=== PATIENT | female | born 1965 | race Two or more races ===

== ENCOUNTER 2024-08-08 16:45 | Inpatient (IN) | payer MEDICAID, SELFPAY ==
[2024-08-08 17:08] VITALS: BP 123/84; PULSE 85; RESP 18; TEMP 36.6; O2SAT 95
--- NOTE | 2024-08-08 17:17 | XR_ITS ---
Examination: CT brain head without contrast. 2-D sagittal coronal reconstructions Date and time of exam:August 08, 2024 at 1905 hrs. Indications: Right-sided head pain today expressing of achalasia CTDI: vol (mGy):48.2 DLP: (mGycm):928 Technique: Multiple CT axial sections of the brain have been obtained, 5 mm slice thickness. Contrast has not been administered. 2-D sagittal, coronal reconstructions have been obtained Low dose protocols were performed. One or more of the following dose reduction techniques were used; automated exposure control, adjustment of the mA and/or KV according to patient size, use of iterative reconstruction technique. Findings: No significant ventricular enlargement. Intra-axial or extra-axial hemorrhage density is not seen. No mass effect or midline shift Basal cisterns are not remarkable. Fourth ventricle is midline. Cranial vault intact. Impression: Negative for acute hemorrhage, mass effect or midline shift Brain MRI follow-up would best assess for demyelinating disease, acute ischemic change
--- NOTE | 2024-08-08 17:17 | XR_ITS ---
Examination: CTA carotids with intravenous contrast CTA brain, head with intravenous contrast. 2-D sagittal, coronal reconstructions. 3-D reconstructions. Exam date and time: August 08, 2024 1906 hours Indications: Right-sided neck pain blurred speech beginning 2 weeks ago CTDI: vol (mGy) 31.9 DLP: (mGycm) 138 Technique: Multiple CTA axial brain, head carotid images post intravenous contrast injection 100 cc, [id number]. 2-D sagittal, coronal reconstructions. 3-D reconstructions, 3-D post processing including vascular maximum intensity projection images. Low dose protocols were performed. One or more of the following dose reduction techniques were used; automated exposure control, adjustment of the mA and/or KV according to patient size, use of iterative reconstruction technique. Findings: No significant common carotid carotid bifurcation or internal carotid artery stenoses Codominant vertebral arteries with no critical stenoses No cerebral large vessel arterial occlusions or thrombus Impression: No significant neck arterial stenoses No cerebral large vessel arterial occlusions or thrombus
--- NOTE | 2024-08-08 17:18 | EKG_ITS ---
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
--- NOTE | 2024-08-08 17:20 | PD.EDADULT ---
ED General RME/HPI General Chief complaint: General Adult/Misc Complain Stated complaint: PT COULDN'T TALK 2 WKS AGO; SENT BY MD TODAY Time Seen by Provider: 08/08/24 17:03 Arrival date/time: 08/08/24 16:45 CC: Expressive aphasia HPI 2 weeks ago the patient had 2 episodes each lasting 2 to 3 minutes where the patient was completely unable to speak. The patient knew what she wanted to say, but was unable to say it. These all spontaneously resolved in the ensuing 2 weeks the patient has had intermittent episodes where she has a tough time trying to express herself. This is all new per her daughter who watches her closely. The daughter also states the patient has had an increased shuffled gait in the left leg onset approximately 1 week ago. The patient is a diabetic with hypertension hyperlipidemia currently she states she still has limited amount of expressive aphasia but is able to answer all the questions appropriately via selenium plant operator. Related Data Home Medications ?Medication ?Instructions ?Recorded ?Confirmed METFORMIN HCL (METFORMIN HCL ER) 1,000 mg PO BID Diabetes ##0 08/06/13 10/10/17 glipizide 5 mg tablet 5 mg PO BID 10/10/17 10/10/17 hydrocodone 7.5 mg-acetaminophen 1 tab PO Q6H PRN Pain 10/10/17 10/10/17 325 mg tablet ranitidine HCl 150 mg tablet 150 mg PO BID 10/10/17 10/10/17 Previous Rx's ?Medication ?Instructions ?Recorded cephalexin 500 mg capsule (Keflex) 500 mg PO TID #15 caps 10/10/17 ondansetron HCl 4 mg tablet 4 mg PO Q6H PRN nausea and 10/10/17 (Zofran) vomiting #7 tabs promethazine 25 mg tablet 25 mg PO TID PRN nausea and 02/09/21 vomiting #20 tabs Allergies Allergy/AdvReac Type Severity Reaction Status Date / Time tramadol Allergy Mild Itching Verified 08/08/24 16:50 Review of Systems Review of Systems Narrative Review of Systems: GEN: No fever, no chills, no weight loss EYES: No discharge, no visual changes, no pain HEENT: No ear pain, no congestion, no sore throat PULM: No shortness of breath, no cough, no congestion CV: No chest pain, no dyspnea on exertion, no palpitations GI: No nausea, no vomiting, no diarrhea, no pain, no constipation : No frequency, no urgency, no dysuria MUSC/SKEL: No joint pain, no back pain SKIN: No rash PSYCH: No hallucinations, no depression HEME/LYMPH: No easy bleeding or bruising tendencies NEURO: No weakness, no headache,+ difficulty speaking Past Medical History Past Medical History CARDIAC: Negative Cardiac Disorders or Congestive Heart Failure RESPIRATORY: Negative Chronic Obstructive Pulmonary Disease (COPD) or Asthma GASTROINTESTINAL: Positive Gastroesophageal Reflux Disease GENITOURINARY: Negative Renal Disease ENDOCRINE: Positive Diabetes Mellitus Type 2; Negative Diabetes Mellitus Type 1 HEMATOLOGIC: Negative Sickle Cell Disease Social History SMOKING STATUS: Never smoker SUBSTANCE USE: does not use ED Exam Narrative Physical exam: [General: Not in any acute distress Head normocephalic HEENT: Eyes pupils are PERRLA EOMs are intact mouth pink moist membranes uvula is midline swallow symmetrical. Face note, no facial droop smile symmetrical. All other subsystems of HEENT are within acceptable limits Neck is supple nontender Chest equal chest rise nontender to palpation Respiratory: Clear to auscultation no wheezes crackles or rubs CV: Rate rhythm is regular no murmurs rubs or clicks Abdomen is soft nontender no masses positive bowel sounds all 4 quadrants Back: No CVA tenderness no spinous process tenderness from cervical spine thoracic and lumbar spine Skin: Intact no petechiae rash induration ulceration or crepitus Extremities: Moving all extremity against resistance cap refill less than 2 seconds neurosensory intact Neuro: Awake alert oriented x3 Glascow coma 15 no focal deficits] Course Course Course Narrative: Patient's case discussed with Dr. Jorgensen who agrees to consult on the patient once the patient admitted for MRI in the morning. Orders Category Date Time Status CT Screening NOW Care 08/08/24 17:18 Active EKG (ED ONLY) *Do not use* NOW Care 08/08/24 17:18 Completed Consult to Neurology / Tele-Neurology Stat Cons 08/08/24 20:[address] angio carotid w head w Stat Exams 08/08/24 17:[address] head/brain wo con Stat Exams 08/08/24 17:17 Completed EKG (ED Only) Stat Exams 08/08/24 17:18 Draft B-Type Natriuretic Peptide Stat Lab 08/08/24 17:30 Completed CBC Stat Lab 08/08/24 17:30 Completed Comprehensive Metabolic Panel Stat Lab 08/08/24 17:30 Completed Drug Screen,Urine Stat Lab 08/08/24 18:17 Completed LDH (Lactate Dehydrogenase) Stat Lab 08/08/24 17:30 Completed Magnesium Stat Lab 08/08/24 17:30 Completed Partial Thromboplastin Time Stat Lab 08/08/24 17:30 Completed Prothrombin Time with INR Stat Lab 08/08/24 17:30 Completed Troponin I Stat Lab 08/08/24 17:30 Completed Urinalysis Stat Lab 08/08/24 18:17 Completed Vital Signs Vital signs: Vital Signs Temperature 97.9 F 08/08/24 17:08 Pulse Rate 85 08/08/24 17:08 Respiratory Rate 18 08/08/24 17:08 Blood Pressure 123/84 08/08/24 17:08 Pulse Oximetry (%) 95 08/08/24 17:08 Oxygen Delivery Method Room Air 08/08/24 17:08 [facility] Patient data External records reviewed:: [facility] previous records Clinical information provided by:: patient Social determinants that could affect healthcare access:: none Patient has the following chronic illnesses:: Diabetes hypertension hyperlipidemia How is presenting disease/condition affected by chronic disease/condition?: uneffected by Evaluation data The following diagnostics were reviewed and interpreted by me:: lab results, radiology exam(s) and EKG tracing(s) Lab and/or radiology exams considered but not ordered:: EKG performed at 1721 shows a ventricular rate of 84 NE interval 163 QRS of 102 QTc of 345 the sinus rhythm Interpretation Summary: CBC shows no acute leukocytosis anemia thrombocytopenia Coags within acceptable limits CMP shows no significant electrolyte imbalances other than a glucose of 223 no transaminitis or T. bili elevation Troponin is negative BNP is negative Urine is positive for leukocyte esterase 23 WBCs 1+ bacteria U tox is positive for opiate CT head and CTA neck both are negative for any acute finding requires emergent or immediate intervention as interpreted by me and read by radiology. Medications Medications considered but not ordered:: None Medication administrations:: None Consultations Consultation(s) initiated? (list below): Yes Consultation #1 (Physician, Specialty, Details): Jameel Time: 20:36 Diagnosis Differential Diagnosis ED Complaint MDM: CVA TIA intracranial hemorrhage Most likely diagnosis given after review of the tests above:: CVA Admission Indicated Admission indicated?: indicated Explain why admission is indicated or not indicated:: Requires further medical management Admission Request Was there a request for admission?: No Disposition Plan Disposition Plan: Admit Medical Decision Making Differential Diagnosis Differential Diagnosis: CVA TIA intracranial hemorrhage Lab Data 08/08/24 17:30 08/08/24 17:30 Labs: Lab Results 08/08/24 08/08/24 Range/Units 17:30 18:17 WBC 7.5 (3.6-11.0) Thou/mm3 RBC 4.15 (4.00-5.20) Miln/mm3 Hgb 12.5 (12.0-16.0) g/dL Hct 36.8 (36.0-46.0) % MCV 89 (80-100) fL MCH 30.1 (25.0-35.0) pg MCHC 34.0 (31.0-37.0) g/dl RDW Std Deviation 41.4 (36.4-46.3) fL Plt Count 291 (140-440) Thou/mm3 Neut % (Auto) 52 (37-80) % Lymph % (Auto) 38 (10-50) % Lyman % (Auto) 6 (0-12) % Eos % (Auto) 3 (0-10) % Baso % (Auto) 1 (0-2.5) % Neut # (Auto) 3.9 (1.8-7.7) Thou/mm3 Lymph # (Auto) 2.8 (1.0-4.8) Thou/mm3 Lyman # (Auto) 0.4 (0.0-0.8) Thou/mm3 Eos # (Auto) 0.2 (0.0-0.5) Thou/mm3 Baso # (Auto) 0.1 (0.0-0.2) Thou/mm3 Immature Gran # (Auto) 0.02 H (0.00-0.00) Thou/mm3 Absolute Nucleated RBC 0.00 (0.00-0.00) Thou/mm3 Immature Gran % 0 (0-0) % Nucleated RBC % 0 (0) /100 WBC PT 10.9 (9.0-12.2) Seconds INR 1.0 (0.9-1.3) APTT 26.0 (22.0-36.0) Seconds Sodium 140 (136-145) mMol/L Potassium 3.4 (3.4-5.1) mMol/L Chloride 104 (98-107) mMol/L Carbon Dioxide 28.3 (20.0-31.0) mMol/L Anion Gap 8 (7-16) BUN 16 (9-23) mg/dL Creatinine 1.1 (0.6-1.3) mg/dL Estim Creat Clear Calc Not Performed. eGFR 58 L (60 - ) See Note BUN/Creatinine Ratio 15 (12-20) Ratio Glucose 223 H (74-106) mg/dL Calculated Osmolality 287 (275-295) Calcium 9.7 (8.3-10.6) mg/dL Corrected Calcium 9.7 (8.5-10.1) mg/dL Magnesium 1.7 (1.6-2.6) mg/dL Total Bilirubin 0.6 (0.3-1.2) mg/dL AST 10 (0-34) U/L ALT 14 (10-49) U/L Alkaline Phosphatase 90 (46-116) U/L Lactate Dehydrogenase 130 (120-246) U/L Troponin I < 0.002 (0.0-0.045) ng/mL B-Natriuretic Peptide 38 (0-100) pg/mL Total Protein 6.7 (5.7-8.2) gm/dL Albumin 4.1 (3.5-5.0) gm/dL Globulin 2.6 (2.3-3.5) gm/dL Albumin/Globulin Ratio 1.6 (1.2-2.2) Ur Collection Type Clean Catch Urine Color Yellow (Lt Yel-Yel) Urine Clarity Clear (Clear/Hazy) Urine pH 6.5 (5.0-7.0) Ur Specific [place] 1.021 (1.001-1.035) Urine Protein Negative (Neg - Trace) Urine Glucose (UA) Trace (Negative) Urine Ketones Negative (Negative) Urine Blood Negative (Negative) Urine Nitrite Negative (Negative) Urine Bilirubin Negative (Negative) Urine Urobilinogen (Auto) 2.0 (0.0-1.0) mg/dL Ur Leukocyte Esterase Positive (Negative) Urine RBC 7 H (0-3) /hpf Urine WBC 23 H (0-5) /hpf Ur Squamous Epith Cells 1 (0-5) /hpf Urine Bacteria 1+ A (None) Urine Opiates Screen Positive A (Negative) Urine Fentanyl Screen Negative (Negative) Ur Barbiturates Screen Negative (Negative) U Amphetamin/Meth Scrn Negative (Negative) U Benzodiazepines Scrn Negative (Negative) U Cocaine Metab Screen Negative (Negative) U Marijuana (THC) Screen Negative (Negative) Discharge Plan Plan Patient Disposition: Other Care w/in Hosp (SDC/SHAHEED) Patient condition on transfer: Stable Prescriptions/Referrals Prescriptions/Med Rec: No Action METFORMIN HCL (METFORMIN HCL ER) 500 MG TAB.ER.24 1,000 mg PO BID Qty: 0 hydrocodone-acetaminophen 7.5-325 mg Tablet 1 tab PO Q6H PRN (Reason: Pain) ranitidine HCl 150 mg Tablet 150 mg PO BID glipizide 5 mg Tablet 5 mg PO BID ondansetron HCl [Zofran] 4 mg tablet 4 mg PO Q6H PRN (Reason: nausea and vomiting) Qty: 7 0RF cephalexin [Keflex] 500 mg capsule 500 mg PO TID Qty: 15 0RF Rx Instructions: space evenly during waking hours promethazine 25 mg tablet 25 mg PO TID PRN (Reason: nausea and vomiting) Qty: 20 0RF Referrals: No Primary/Family,Physician [Primary Care Provider] - In 1 week Problem List Clinical Impression: Expressive aphasia syndrome Patient/Caregiver Discharge Instructions Print Language: Armenian Stand Alone Forms: Mery Award Info., Patient Portal Info Letter PA/STAFF DEVELOPMENT NURSE Supervising Physician PA/STAFF DEVELOPMENT NURSE Supervising Physician: Mina Otto ENP
[2024-08-08 17:37] LABS: Basophils # (Auto) 0.1 Thou/mm3 (0.0-0.2); Basophils % (Auto) 1 % (0-2.5); Eosinophils # (Auto) 0.2 Thou/mm3 (0.0-0.5); Eosinophils % (Auto) 3 % (0-10); Hematocrit 36.8 % (36.0-46.0); Hemoglobin 12.5 g/dL (12.0-16.0); Immature Granulocytes % (Auto) 0 % (0-0); Immature Granulocytes Auto 0.02 Thou/mm3 (0.00-0.00); Lymphocytes # (Auto) 2.8 Thou/mm3 (1.0-4.8); Lymphocytes % (Auto) 38 % (10-50); Mean Corpuscular Hemoglobin 30.1 pg (25.0-35.0); Mean Corpuscular Volume 89 fL (80-100); Monocytes # (Auto) 0.4 Thou/mm3 (0.0-0.8); Monocytes % (Auto) 6 % (0-12); Neutrophils # (Auto) 3.9 Thou/mm3 (1.8-7.7); Neutrophils % (Auto) 52 % (37-80); Nucleated Red Blood Cell % 0 /100 WBC (0); Platelet Count 291 Thou/mm3 (140-440); RDW Standard Deviation 41.4 fL (36.4-46.3); Red Blood Count 4.15 Miln/mm3 (4.00-5.20); White Blood Count 7.5 Thou/mm3 (3.6-11.0)
[2024-08-08 17:56] LABS: Prothrombin Time 10.9 Seconds (9.0-12.2)
[2024-08-08 17:58] LABS: B-Type Natriuretic Peptide 38 pg/mL (0-100)
[2024-08-08 17:59] LABS: Alanine Aminotransferase 14 U/L (10-49); Albumin, Serum 4.1 gm/dL (3.5-5.0); Albumin/Globulin Ratio 1.6 (1.2-2.2); Alkaline Phosphatase 90 U/L (46-116); Anion Gap 8 (7-16); Aspartate Amino Transferase 10 U/L (0-34); BUN/Creatinine Ratio 15 Ratio (12-20); Bilirubin,Total 0.6 mg/dL (0.3-1.2); Blood Urea Nitrogen 16 mg/dL (9-23); Calcium 9.7 mg/dL (8.3-10.6); Calcium (Corrected) 9.7 mg/dL (8.5-10.1); Carbon Dioxide 28.3 mMol/L (20.0-31.0); Chloride 104 mMol/L (98-107); Creatinine (Component) 1.1 mg/dL (0.6-1.3); Globulin 2.6 gm/dL (2.3-3.5); Glucose 223 mg/dL (74-106); LDH (Lactate Dehydrogenase) 130 U/L (120-246); Magnesium 1.7 mg/dL (1.6-2.6); Osmolality,Calculated 287 (275-295); Potassium 3.4 mMol/L (3.4-5.1); Sodium 140 mMol/L (136-145); Total Protein 6.7 gm/dL (5.7-8.2); Troponin I < 0.002 ng/mL (0.0-0.045); eGFR 58 See Note
[2024-08-08 18:09] VITALS: BMI 28.5
[2024-08-08 18:28] LABS: Collection Type, Urine Clean Catch
[2024-08-08 18:44] LABS: Bacteria,Urine 1+; Bilirubin,Urine Negative (Negative); Blood,Urine Negative (Negative); Clarity,Urine Clear (Clear/Hazy); Color,Urine Yellow (Lt Yel-Yel); Glucose, Urine Trace (Negative); Ketones,Urine Negative (Negative); Leukocyte Esterase,Urine Positive (Negative); Nitrite,Urine Negative (Negative); PH,Urine 6.5 (5.0-7.0); Protein,Urine Negative (Neg - Trace); RBC,Urine 7 /hpf (0-3); Specific Gravity,Urine 1.021 (1.001-1.035); Squamous Epithelial Cell,Urine 1 /hpf (0-5); WBC,Urine 23 /hpf (0-5)
[2024-08-08 18:49] LABS: Amphetamine/Methamp Scrn,U Negative (Negative); Barbiturate Screen,Urine Negative (Negative); Benzodiazepines Screen,Urine Negative (Negative); Benzoylecgonine Screen, Ur Negative (Negative); Fentanyl Screen,Urine Negative (Negative); Opiate Screen,Urine Positive (Negative); THC Screen,Urine Negative (Negative)
[2024-08-08 18:51] VITALS: BP 105/71; PULSE 71; RESP 18; TEMP 36.6; O2SAT 95
[2024-08-08 20:00] VITALS: BP 101/67; PULSE 69; RESP 16; TEMP 36.6; O2SAT 98
[2024-08-08 22:00] VITALS: BP 95/63; PULSE 66; RESP 16; TEMP 36.6; O2SAT 96
[2024-08-08 23:24] VITALS: BMI 31.9
--- NOTE | 2024-08-08 23:37 | ESHP_ITS ---
Documentation for date of: 08/08/24 HPI History of Present Illness History of present illness: Jim is a 58 y/o female with past medical history of hypertension, hyperlipidemia, bdd-gycnjcq-npkhaloyu type 2 diabetes mellitus comes in for an evaluation of expressive aphasia, slurred speech, left lower extremity weakness, left-sided eye droop, and trouble finding words with speech, onset 2 weeks ago. Patient's daughter is present at bedside to help conduct HPI. Patient's daughter reports that she noticed that her mother started to have the symptoms a couple of days ago on Thursday. She does note that the patient has some gait issue especially with her left lower extremity. She also notes that patient has been making sense with her sentences however she has trouble finding words, slurred speech at times, and has trouble remembering some things more often lately. Patient denies having any associated headache, chest pain, shortness of breath nausea or vomiting. She does say that the symptoms are new. She also notes that about 4 years ago she was admitted for nausea and vomiting and had some altered mental status and had imaging worked done which included MRI, however all of that was negative. 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 She does endorse having more trouble remembering things lately. She denies any recent travel or sicknesses. She was post to get an outpatient MRI, however once patient's daughter knew that patient started to experience the symptoms for 2 weeks, she recommended patient to go to the ER directly and get admitted. She has no other complaints at this time. ED course: She arrived to the ED with a temperature of 98, heart rate of 85, respiratory of 18, blood pressure of 123/84, saturating 95% room air. She was worked up and was found to have a sodium of 140, potassium 3.4, bicarb of 20, BUN/creatinine of 16 and 1.1 respectively, glucose of 223, coag panel negative, magnesium 1.7, troponin negative x 1, AST ALT 10 and 14 respectively. Patient had urinalysis which showed 23 white cells, leukocyte esterase and +1 bacteria. EKG showed possible left atrial enlargement and normal sinus rhythm. U tox was positive for opioids (she takes opioids at home). Head CT negative, head neck CTA negative. Medicine was consulted and patient was admitted to floors Past medical history: As above Surgical history: Hysterectomy, hernia repair, oophorectomy (1 ovary for benign tumor), cholecystectomy, foot surgery for bunions Allergies: Tramadol gives hives Medicines: Lisinopril, pravastatin, metformin, glipizide, Prilosec, Ambien Family history: Breast cancer runs in her family, sister got some abdominal cancer, diabetes mellitus, stroke with her brother in age of 60s. Social history: Born in [place], came to [place] about 30 years ago. Worked in the [employer] and retired about 4 years ago when she had to take care of her parents in which they both passed. # Has never been a big drinker, no smoking or drug history. She cooks all her meals, walks without a walker. Lives with her daughter and her . Review of Systems Review of Systems Narrative Review of Systems: Constitutional: No fever, chills, fatigue, weakness, weight loss HEENT: No eye pain, vision loss, ear pain, hearing loss, dysphagia, Cardiovascular: No chest pain, palpitations, edema, pain with walking Respiratory: No cough, shortness of breath, wheezing GI: No NVD, abdominal pain, constipation, blood in stool, loss of appetite, heartburn Extremities: No presence of pitting edema MSK: No back pain, joint pain, joint swelling Neuro: No dizziness, numbness, weakness, headaches, seizures, tremors, +trouble with speech, +trouble with gait Psych: No anxiety, depression Exam Vital Signs Temp Pulse Resp BP Pulse Ox O2 Del Method 97.8 F 66 16 95/63 96 Room Air 08/08/24 22:00 08/08/24 22:00 08/08/24 22:00 08/08/24 22:00 08/08/24 22:08/08/24 22:00 Narrative Exam General: AAOx3, NAD, Luxembourgish-speaking lady, wearing glasses, pleasant HEENT: Moist mucous membranes, conjunctiva clear, EOMI, PERRLA, Cardiovascular: S1, S2, radial pulses +2 bilat, RRR Pulmonary: CTAB bilat no cough, no wheezing GI: No tenderness to light or deep palpitation, no guarding, rigidity, rebound tenderness or distension Extremities: No presence of trace or pitting edema in lower extremities bilaterally, dorsalis pedis pulses +2 bilaterally Neuro: AAOx3, strength in upper left and lower left extremity 4 out of 5 pupillary reflex, intact bilaterally, sensation intact in face, upper and lower extremities bilaterally, no trouble with accommodation Psych: Good judgement, thought and behavior Results: Labs 08/08/24 17:30 08/08/24 17:30 Labs: Short CBC 08/08/24 Range/Units 17:30 WBC 7.5 (3.6-11.0) Thou/mm3 Hgb 12.5 (12.0-16.0) g/dL Hct 36.8 (36.0-46.0) % Plt Count 291 (140-440) Thou/mm3 BMP 08/08/24 17:30 Sodium 140 Potassium 3.4 Chloride 104 Carbon Dioxide 28.3 BUN 16 Creatinine 1.1 Glucose 223 H Calcium 9.7 Cardiac Enzymes 08/08/24 Range/Units 17:30 Troponin I < 0.002 (0.0-0.045) ng/mL Liver Function 08/08/24 Range/Units 17:30 Total Bilirubin 0.6 (0.3-1.2) mg/dL AST 10 (0-34) U/L ALT 14 (10-49) U/L Alkaline Phosphatase 90 (46-116) U/L Albumin 4.1 (3.5-5.0) gm/dL Urine 08/08/24 Range/Units 18:17 Urine Color Yellow (Lt Yel-Yel) Urine Clarity Clear (Clear/Hazy) Urine pH 6.5 (5.0-7.0) Ur Specific [place] 1.021 (1.001-1.035) Urine Protein Negative (Neg - Trace) Urine Glucose (UA) Trace (Negative) Quality Measures Quality Measures VTE prophylaxis (Lovenox) Medications Home Medications and Allergies Home Medications ?Medication ?Instructions ?Recorded ?Confirmed ?Type METFORMIN HCL (METFORMIN HCL ER) 1,000 mg PO BID Diabe tor ##0 08/06/13 10/10/17 History glipizide 5 mg tablet 5 mg PO BID 10/10/17 8 History hydrocodone 7.5 mg-acetaminophen 1 tab PO Q6H PRN Pain 10/10/17 10/10/17 History 325 mg tablet ranitidine HCl 150 mg tablet 150 mg PO BID 10/10/17 History Allergies Allergy/AdvReac Type Severity Reaction Status Date / Time tramadol Allergy Mild Itching Verified 08/08/24 16:50 Visit Medications Acetaminophen (Acetaminophen 325 Mg Tablet) 650 mg PO Q6H PRN PRN Reason: Fever >100 or pain 1-3 Stop: 09/07/24 23:23 Hydrocodone Bitart/Acetaminophen (Hydrocodone/Apap 5/325 Tablet) 1 tab PO Q6HR PRN PRN Reason: PAIN SCALE 4-6 (Moderate Stop: 08/13/24 23:23 Aspirin (Aspirin Ec 81 Mg Tabec) 81 mg PO QDAY [facility] Stop: 09/07/24 23:34 Atorvastatin Calcium (Atorvastatin Calcium 10 Mg Tablet) 80 mg PO HS TONJA Stop: 09/07/24 23:34 Dextrose (Dextrose 50%-Water Inj 50 Ml Syringe) 25 ml IV Q15MIN PRN PRN Reason: BG 50-70 responsive npo pt Stop: 09/07/24 23:32 Dextrose (Dextrose 50%-Water Inj 50 Ml Syringe) 50 ml IV Q15MIN PRN PRN Reason: BG <50 OR BG <70 & pt unresponsive Stop: 09/07/24 23:32 Glucagon (Glucagon Inj 1 Mg Vial) 1 mg IM Q15MIN PRN PRN Reason: BG <70, and no IV access Insulin Human Lispro (Insulin Lispro (Admelog) 1 Unit/0.01 Ml Unit) 0 unit SC [facility]; Protocol Stop: 09/08/24 07:29 Ondansetron HCl (Ondansetron Inj 2 Mg/Ml Inj 2 Ml) 4 mg IV Q6H PRN; Protocol PRN Reason: NAUSEA OR VOMITING Stop: 09/07/24 23:23 Pantoprazole Sodium (Pantoprazole Inj 40 Mg Vial) 40 mg IVP QDAY [facility] Stop: 09/08/24 08:59 Assessment & Plan Plan Assessment Jim is a 58 y/o female with past medical history of hypertension, hyperlipidemia, vec-vxkuxxs-rxhjgjcep type 2 diabetes mellitus was admitted for acute CVA rule out. #Acute CVA rule out #Expressive aphasia #Slurred speech Head CT negative Neck CTA negative Patient has had MRI in the past 2020 which was negative for mass effect, midline shift or hemorrhage, however there was a hyperintensity could not be determined fully because patient was moving during exam Due to patient having symptoms for past couple of weeks, teleneuro was not consulted Patient unlikely having acute CVA, however TBI cannot be ruled out There is concern if patient is having possible emboli, no A-fib seen on EKG or telemetry No echo in the past Stroke unlikely as some deficits seem to be in multiple areas and not very localized Plan: ? Neurology consulted, appreciate recs ? MR stroke protocol ? Speech therapy ? Physical therapy ? Echo ? Neurochecks every 4 hours ? Head of bed elevation 30 degrees ? DVT prophylaxis ? Bedrest ? Aspirin 81 mg and Lipitor 80 mg at bedtime ? Follow-up lipid panel, TSH, A1c #Diabetes mellitus type II, non-insulin dependent Takes glipizide and metformin 1000 mg BID at home Plan: ? Sliding scale insulin ? Hypoglycemic protocol in place ? Blood sugar checks with meals #History of hypertension #History of hyperlipidemia Takes lisinopril and pravastatin at home Plan: ? Awaiting med rec ? Lipitor 80 mg at bedtime #Health Maintenance Disposition: Telemetry DVT prophylaxis: Lovenox GI prophylaxis: Protonix Diet: N.p.o. until passes swallow eval CODE STATUS: DNR Patient seen and care discussed with my attending physician, Dr. French Padilla, PGY-1 Attending Provider Attestation/Addendum I attest that I was physically present for the evaluation, physical examination, lab and imaging review of the patient with the residents. I discussed the case with the residents and agree with the findings and plans of care as documented above. Patient is a 58 years old female with past medical history of hypertension, hyperlipidemia, diabetes, who presented to the ED with complaint of expressive aphasia, slurred speech and left lower extremity weakness. Patient has been having these symptoms for 2 weeks, which her daughter noticed and decided to visit the ED. In the ED, her vitals are within normal limits. Lab results show BUN/creatinine of 16/1.1, glucose 223. Urinalysis showed a leukocyte esterase, bacteria and [address] head is negative for acute hemorrhage, mass effect and midline shift. CTA head/neck also negative. On exam, she is alert and oriented, able to follow commands but does take some time to answer some of the questions. Has been able to move all her limbs, states that sensation on her left side of face and left foot is lower compared to the right side. We will admit the patient CVA, started on aspirin, statin, neurochecks, speech and physical therapy. We will obtain echocardiography and brain along with neurology consult. Patient has been started on insulin for diabetes. Jac Braswell MD
[2024-08-08] MEDS: ATORVASTATIN CALCIUM 10 MG TABLET 80 MG PO (23:53)
[2024-08-08] MEDS: ASPIRIN EC 81 MG TABEC PO (23:53)
[2024-08-08 23:56] VITALS: BP 126/86; PULSE 66; RESP 17; TEMP 36.6; O2SAT 95
[2024-08-09] VITALS (9 sets, daily range): BP systolic 113–149; BP diastolic 71–92; PULSE 61–91; RESP 16–31; TEMP 36.2–36.5; O2SAT 93–97; BMI 28.8
--- NOTE | 2024-08-09 | XR_ITS ---
Examinations: MRI Brain without intravenous contrast. MRA brain without intravenous contrast. MRA carotids without intravenous contrast 3-D vascular reconstructions Date and time of exam: August 09 2024 0830 hours Indication: Episodes of expressive aphasia beginning 2 weeks ago ataxia Technique: Multiple axial and sagittal images of the brain have been obtained MRA brain carotid images without contrast obtained, including 3-D postprocessing, vascular maximum intensity projection images Findings: [place] is not enlarged. The optic chiasm and infundibular stalk are not remarkable. Prepontine and interpeduncular cisterns are not enlarged. No localized enlargement of the medulla or kristopher. Fourth ventricle and cerebellar tonsils normal in position. Subacute hemorrhage is not seen. Fourth ventricle is midline. Mass in the cerebellopontine angle region is not evident. 7th and 8th nerve complexes exhibits symmetry. Globes are symmetrical with no retro-orbital mass. Increased white matter signal not seen Diffusion-weighted images demonstrate no focus of restricted diffusion Mass-effect upon the ventricular system is not identified. MRA carotid images no significant carotid stenoses. MRA brain images no cerebral large vessel arterial occlusions Impression: Negative for acute hemorrhage mass effect or midline shift No acute infarct No MR findings of demyelinating disease No cerebral large vessel arterial occlusions
[2024-08-09] MEDS: HYDROcodone/APAP 5/325 TABLET 1 TAB PO ×2 (02:37→09:38)
[2024-08-09 05:42] LABS: Basophils # (Auto) 0.1 Thou/mm3 (0.0-0.2); Basophils % (Auto) 1 % (0-2.5); Eosinophils # (Auto) 0.3 Thou/mm3 (0.0-0.5); Eosinophils % (Auto) 5 % (0-10); Hematocrit 36.2 % (36.0-46.0); Hemoglobin 12.2 g/dL (12.0-16.0); Immature Granulocytes % (Auto) 0 % (0-0); Immature Granulocytes Auto 0.01 Thou/mm3 (0.00-0.00); Lymphocytes # (Auto) 2.9 Thou/mm3 (1.0-4.8); Lymphocytes % (Auto) 43 % (10-50); Mean Corpuscular HGB Conc 33.7 g/dl (31.0-37.0); Mean Corpuscular Hemoglobin 29.8 pg (25.0-35.0); Mean Corpuscular Volume 88 fL (80-100); Monocytes # (Auto) 0.5 Thou/mm3 (0.0-0.8); Monocytes % (Auto) 7 % (0-12); Neutrophils # (Auto) 2.9 Thou/mm3 (1.8-7.7); Neutrophils % (Auto) 44 % (37-80); Nucleated Red Blood Cell % 0 /100 WBC (0); Platelet Count 272 Thou/mm3 (140-440); RDW Standard Deviation 41.1 fL (36.4-46.3); White Blood Count 6.7 Thou/mm3 (3.6-11.0)
[2024-08-09 05:53] LABS: Glucose Estimated Average 131 mg/dL (80-131); Hemoglobin A1C 6.2 % Hgb (4.8-6.0)
[2024-08-09 05:59] LABS: Partial Thromboplastin Time 26.5 Seconds (22.0-36.0)
[2024-08-09 06:30] LABS: Alanine Aminotransferase 13 U/L (10-49); Albumin, Serum 3.8 gm/dL (3.5-5.0); Albumin/Globulin Ratio 1.7 (1.2-2.2); Alkaline Phosphatase 80 U/L (46-116); Anion Gap 6 (7-16); Aspartate Amino Transferase 10 U/L (0-34); BUN/Creatinine Ratio 23 Ratio (12-20); Bilirubin,Total 0.6 mg/dL (0.3-1.2); Blood Urea Nitrogen 16 mg/dL (9-23); Calcium 9.5 mg/dL (8.3-10.6); Calcium (Corrected) 9.7 mg/dL (8.5-10.1); Cardiac Risk Estimate 2.8 RATIO (3.7-5.6); Chloride 107 mMol/L (98-107); Cholesterol 119 mg/dL (132-200); Creatinine (Component) 0.7 mg/dL (0.6-1.3); Estimated Creatinine Clearance 83.4 mL/min (>60); Globulin 2.3 gm/dL (2.3-3.5); Glucose 99 mg/dL (74-106); HDL Cholesterol 43 mg/dL (40-60); LDL Cholesterol,Calculated 38 mg/dL (0-130); Magnesium 1.7 mg/dL (1.6-2.6); Osmolality,Calculated 282 (275-295); Phosphorous 3.8 mg/dL (2.4-5.1); Potassium 3.2 mMol/L (3.4-5.1); Sodium 141 mMol/L (136-145); Thyroid Stimulating Hormone 1.73 uIU/mL (0.55-4.78); Total Protein 6.1 gm/dL (5.7-8.2); Triglycerides 190 mg/dL (30-150); eGFR > 60 See Note
[2024-08-09] MEDS: ENOXAPARIN SOD INJ 40 MG/0.4 ML SYRINGE SC (09:38)
[2024-08-09] MEDS: PANTOPRAZOLE INJ 40 MG VIAL IVP (09:38)
[2024-08-09] MEDS: ASPIRIN EC 81 MG TABEC PO (09:39)
--- NOTE | 2024-08-09 10:29 | ESPR_ITS ---
<Statement entered by Jayda Jorgensen MD - 08/10/24 05:47> Patient is a 58-year-old female with past medical history significant for hypertension, hyperlipidemia, non-insulin dependent type 2 diabetes who was admitted for acute CVA rule out. Patient's family noted that patient was slurring her speech noted to have left lower extremity weakness for 2 weeks. After seeing her PCP yesterday, patient was prompted to come to the ER for further evaluation. MRI of brain found to be negative for any acute infarct. Echo with bubble negative for any PFO. A1c found to be 6.2. Patient's daughters at bedside states that patient is progressing back to baseline. Will continue with aspirin 81 mg and atorvastatin 80 mg until recommendations from neurology. Anticipate discharge within 24 to 48 hours. I discussed with and supervised the music industry intern physician who took care of this patient. I personally saw and examined the patient and discussed the assessment and plan with the entire medicine team, including my attending Dr. Vu, I agree with most of the assessment and plan as documented below Jayda Jorgensen M.D. PGY-2 Disclaimer: Despite multiple revisions, due to the dictation software being used, the document bellow may not be free of grammatical errors including phonetic/typographic errors. However, this does not deter from our commitment to providing health care in the patient's best interest in mind. Documentation for date of: 08/09/24 Subjective Subjective Interval history: Patient seen today at the bedside fine awake, alert, oriented x 3, accompanied by family. No overnight events reported. On examination there is decreased sensation on the left side of face. Vital signs stable at this time. Labs at this time unremarkable. MRI brain was done found to be negative for acute hemorrhage, mass effect or midline shift, no acute infarct noted and no findings of demyelinating disease or large vessel occlusion. Patient is pending to be evaluated by speech therapy and physical therapy. As far as her symptoms, symptoms seem to be improving, patient close to baseline as per family members at the bedside. Exam Vital Signs Temp Pulse Resp BP Pulse Ox O2 Del Method 97.4 F 71 20 123/71 93 L Room Air 08/09/24 08:00 08/09/24 08:00 08/09/24 08:00 08/09/24 08:00 08/09/24 08:00 08/09/24 08:00 Narrative Exam Physical Exam GENERAL: NAD, AAOx3 HEENT: Moist mucosa. Eyes open, symmetrical, & clear, decreased sensation on the left side of the face CARDIO: Heart RRR, no obvious murmurs PULM: No noted coughing/dyspnea CTA B/L, no R/W/R GI: Abdomen soft, nondistended, no pain on palpation. BSx4 SKIN/MSK/EXT: No wounds/rashes/edema/amputations, no pain on palpation. Pedal pulses present B/L NEURO: AAOx3, no focal neuro deficits, able to move all 4 extremities Objective Labs 08/10/24 04:55 08/10/24 04:55 Labs: Laboratory Results - last 24 hr 08/08/24 08/08/24 08/09/24 17:30 18:17 04:37 WBC 7.5 6.7 RBC 4.15 4.10 Hgb 12.5 12.2 Hct 36.8 36.2 MCV 89 88 MCH 30.1 29.8 MCHC 34.0 33.7 RDW Std Deviation 41.4 41.1 Plt Count 291 272 Neut % (Auto) 52 44 Lymph % (Auto) 38 43 [place] % (Auto) 6 7 Eos % (Auto) 3 5 Baso % (Auto) 1 1 Neut # (Auto) 3.9 2.9 Lymph # (Auto) 2.8 2.9 [place] # (Auto) 0.4 0.5 Eos # (Auto) 0.2 0.3 Baso # (Auto) 0.1 0.1 Immature Gran # (Auto) 0.02 H 0.01 H Absolute Nucleated RBC 0.00 0.00 Immature Gran % 0 0 Nucleated RBC % 0 0 PT 10.9 11.0 INR 1.0 1.0 APTT 26.0 26.5 Sodium 140 141 Potassium 3.4 3.2 L Chloride 104 107 Carbon Dioxide 28.3 28.0 Anion Gap 8 6 L BUN 16 16 Creatinine 1.1 0.7 Estim Creat Clear Calc Not Performed. 83.4 eGFR 58 L > 60 BUN/Creatinine Ratio 15 23 H Glucose [address] Glu mg/dL 131 Hemoglobin A1c 6.2 H Calculated Osmolality 287 282 Calcium 9.7 9.5 Corrected Calcium 9.7 9.7 Phosphorus 3.8 Magnesium 1.7 1.7 Total Bilirubin 0.6 0.6 AST 10 10 ALT 14 13 Alkaline Phosphatase 90 80 Lactate Dehydrogenase 130 Troponin I < 0.002 B-Natriuretic Peptide 38 Total Protein 6.7 6.1 Albumin 4.1 3.8 Globulin 2.6 2.3 Albumin/Globulin Ratio 1.6 1.7 Triglycerides 190 H Cholesterol 119 L LDL Cholesterol, Calc 38 HDL Cholesterol 43 Cholesterol/HDL Ratio 2.8 L TSH 1.73 Ur Collection Type Clean Catch Urine Color Yellow Urine Clarity Clear Urine pH 6.5 Ur Specific [place] 1.021 Urine Protein Negative Urine Glucose (UA) Trace Urine Ketones Negative Urine Blood Negative Urine Nitrite Negative Urine Bilirubin Negative Urine Urobilinogen (Auto) 2.0 Ur Leukocyte Esterase Positive Urine RBC 7 H Urine WBC 23 H Ur Squamous Epith Cells 1 Urine Bacteria 1+ A Urine Opiates Screen Positive A Urine Fentanyl Screen Negative Ur Barbiturates Screen Negative U Amphetamin/Meth Scrn Negative U Benzodiazepines Scrn Negative U Cocaine Metab Screen Negative U Marijuana (THC) Screen Negative Quality Measures Quality Measures VTE prophylaxis (Lovenox) Assessment & Plan Assessment Current Active Medications: Generic Name Dose Route Start Last Admin Trade Name Freq PRN Reason Stop Dose Admin Acetaminophen 650 mg 08/08/24 23:24 Acetaminophen 325 Mg Tablet PO 09/07/24 23:23 Q6H PRN Fever >100 or pain 1-3 Hydrocodone Bitart/Acetaminophen 1 tab 08/08/24 23:24 08/09/24 09:38 Hydrocodone/Apap 5/325 Tablet PO 08/13/24 23:23 1 tab Q6HR PRN Administration PAIN SCALE 4-6 (Moderate Aspirin 81 mg 08/08/24 23:35 08/09/24 09:39 Aspirin Ec 81 Mg Tabec PO 09/07/24 23:34 81 mg QDAY TONJA Administration Atorvastatin Calcium 80 mg 08/08/24 23:35 08/08/24 23:53 Atorvastatin Calcium 10 Mg Tablet PO 09/07/24 23:34 80 mg HS TONJA Administration Dextrose 25 ml 08/08/24 23:33 Dextrose 50%-Water Inj 50 Ml Syringe IV 09/07/24 23:32 Q15MIN PRN BG 50-70 responsive npo pt Dextrose 50 ml 08/08/24 23:33 Dextrose 50%-Water Inj 50 Ml Syringe IV 09/07/24 23:32 Q15MIN PRN BG <50 OR BG <70 & pt unresponsive Enoxaparin Sodium 40 mg 08/09/24 09:00 08/09/24 09:38 Enoxaparin Sod Inj 40 Mg/0.4 Ml Syringe SC 08/23/24 08:59 40 mg QDAY TONJA Administration Glucagon 1 mg 08/08/24 23:33 Glucagon Inj 1 Mg Vial IM Q15MIN PRN BG <70, and no IV access Potassium Chloride 10 meq in 100 mls @ 100 mls/hr 08/09/24 10:11 Kcl Ivpb IV 08/09/24 14:10 Q1H TONJA Insulin Human Lispro 0 unit 08/09/24 07:30 Insulin Lispro (Admelog) 1 Unit/0.01 Ml Unit SC 09/08/24 07:29 AC TONJA Protocol Ondansetron HCl 4 mg 08/08/24 23:24 Ondansetron Inj 2 Mg/Ml Inj 2 Ml IV 09/07/24 23:23 Q6H PRN NAUSEA OR VOMITING Protocol Pantoprazole Sodium 40 mg 08/09/24 09:00 08/09/24 09:38 Pantoprazole Inj 40 Mg Vial IVP 09/08/24 08:59 40 mg QDAY TONJA Administration Zolpidem Tartrate 5 mg 08/08/24 23:50 Zolpidem 5 Mg Tablet PO 09/07/24 23:49 HS PRN INSOMNIA Plan 58 y/o female with past medical history of hypertension, hyperlipidemia, [id number] type 2 diabetes mellitus was admitted for acute CVA rule out. #Expressive aphasia #Slurred speech Patient presented with expressive aphasia has been going on for a few weeks Granddaughter noticed that day prior to admission. CT of the head was negative for any acute stroke Head and neck CTA was negative MRI brain was done found negative for any acute infarct, or evidence of demyelinating disease Patient has had MRI in the past 2020 which was negative for mass effect, midline shift or hemorrhage, however there was a hyperintensity could not be determined fully because patient was moving during exam Due to patient having symptoms for past couple of weeks, teleneuro was not consulted Echo was done found to have negative bubble study with an ejection fraction of 55 to 60% with grade 1 diastolic dysfunction Lipid profile found with elevated triglycerides A1c found to be 6.2 TSH within normal limits Nurse bedside swallow screen passed ? Neurology consulted, appreciate recs ? Speech therapy ? Physical therapy ? Neurochecks every 4 hours ? Head of bed elevation 30 degrees ? DVT prophylaxis ? Bedrest ? Aspirin 81 mg and Lipitor 80 mg at bedtime #Diabetes mellitus type II, non-insulin dependent Takes glipizide and metformin 1000 mg BID at home A1c 6.2, blood sugars during hospitalization well-controlled ? Sliding scale insulin ? Hypoglycemic protocol in place ? Blood sugar checks with meals #History of hypertension #History of hyperlipidemia Takes lisinopril and pravastatin at home Blood pressure has been normotensive at this time will resume antihypertensives when appropriate ? Lipitor 80 mg at bedtime Case discussed with my senior Dr. Jorgensen PGY-[address] Horace Newsome MD PGY-1 Disposition: Telemetry DVT prophylaxis: Lovenox GI prophylaxis: Protonix Diet: Carb consistent low CODE STATUS: DNR Attending Provider Attestation/Addendum Skye Gentile, DO, attest that I was physically present for the rodriguez portions of the service and evaluated the patient with the resident and I reviewed and discussed the case with the resident and agree with the resident's findings and plans of care as documented above Patient seen and evaluated this AM. Patient's daughter at bedside states that the patient has been having symptoms of expressive aphasia about 2 weeks ago, as well as weakness in the left lower extremity. She also states that she noted that the left eye appeared droopy prior to coming to the hospital. Patient is able to answer questions appropriately at this time.MS 4+/5 in all four extremities. Pending MRI and neuro eval.
--- NOTE | 2024-08-09 10:51 | PC.PT ---
PT eval only. Patient is I with transfers and ambulation without AD. Patient can ambulate with family in the hallway prn.
[2024-08-09] MEDS: POTASSIUM CHL 10 mEq IVPB 10 MEQ/100 ML BAG 100 MEQ IV ×4 (10:59→14:29)
[2024-08-09] MEDS: INSULIN LISPRO (AdmeLOG) 1 UNIT/0.01 ML UNIT SC ×2 (12:18→17:40)
--- NOTE | 2024-08-09 12:23 | PC.SS ---
Patient is alert/oriented. She is Scottish speaking only. Interpreting line used. Patient confirmed all demographics. Patient resides with spouse and children. Prior to hospitalization patient was independent with ADL's. No DME. Patient was admitted for CVA r/o. Patient worked with PT today for an initial eval. PT states patient was independent with ADL's. Patient states her transports her to all her appointments. Patient stastes her preferred pharmacy: [email or web address]. PCP: Jocelin Newsome MD @ [facility]. Last appointment was yesterday. Patient verbalized her alt medical decision maker is her , Jeffery. Patient d/c plan: Return home with family.
[2024-08-09] MEDS: ATORVASTATIN CALCIUM 10 MG TABLET 80 MG PO (20:37)
--- NOTE | 2024-08-09 22:34 | PD.NEUROPROG ---
Documentation for date of: 08/09/24 Subjective Subjective Interval history: Patient was seen in telemetry today with her family at the bedside. She denies any new symptoms or recurrence of similar episodes after admission. Her speech and language and balance are back to baseline Exam - Neurology Vital Signs Temp Pulse Resp BP Pulse Ox O2 Del Method 97.6 F 80 27 H 132/90 H 93 L Room Air 08/09/24 20:00 08/09/24 20:00 08/09/24 20:00 08/09/24 20:00 08/09/24 20:00 08/09/24 20:00 Narrative Exam GENERAL APPEARANCE: Well hydrated, well-nourished in no acute distress. HEENT: Normocephalic, atraumatic, extraocular movements intact. Pupils: Equal reacting to light and accommodation NECK: Supple, no JVD or bruits. CARDIOVASULAR: Heart: S1, S2 heard, regular without S3-S4 or murmur no rubs or gallops. LUNGS/CHEST: Clear to auscultation bilaterally. No rails, rhonchi, or wheezing. Normal inspection. ABDOMEN: Soft, nontender, with normal bowel sounds. No pulsatile masses. No rebound, rigidity, or guarding. Normal inspection and palpation. EXTREMITIES: Normal inspection and palpation. No edema, clubbing or cyanosis. SKIN: Warm and dry without rashes. Normal inspection. MUSCULOSKELETAL: No cervical, thoracic, lumbar or midline bony tenderness. Normal inspection. NEURO: Alert, awake and oriented x3. Cranial nerves: II through XII grossly intact. Speech and language: Normal with no dysarthria or dysphasia. Motor system: Tone and bulk: Normal: Strength: 5 out of 5 in all 4 extremities; No pronator drift noted. Deep tendon reflexes: 2+ bilaterally symmetrical. Plantar reflex: Downgoing bilaterally. Sensory system: Intact to all modalities of sensation bilaterally. Coordination: Intact to ubkqlh-[id number]-csrmn and ocld-yzjs-daer test bilaterally. No ataxia, no dysmetria, or dysdiadochokinesia noted. No intention tremors noted. Gait: Normal. Toe, heel, tandem walk all are normal. Romberg: Negative. No signs of meningeal irritation noted. PSYCHIATRIC: Normal mood and affect. Objective Labs 08/10/24 04:55 08/09/24 04:37 Labs: Laboratory Results - last 24 hr 08/09/24 04:37 WBC 6.7 RBC 4.10 Hgb 12.2 Hct 36.2 MCV 88 MCH 29.8 MCHC 33.7 RDW Std Deviation 41.1 Plt Count 272 Neut % (Auto) 44 Lymph % (Auto) 43 [place] % (Auto) 7 Eos % (Auto) 5 Baso % (Auto) 1 Neut # (Auto) 2.9 Lymph # (Auto) 2.9 [place] # (Auto) 0.5 Eos # (Auto) 0.3 Baso # (Auto) 0.1 Immature Gran # (Auto) 0.01 H Absolute Nucleated RBC 0.00 Immature Gran % 0 Nucleated RBC % 0 PT 11.0 INR 1.0 APTT 26.5 Sodium 141 Potassium 3.2 L Chloride 107 Carbon Dioxide 28.0 Anion Gap 6 L BUN 16 Creatinine 0.7 Estim Creat Clear Calc 83.4 eGFR > 60 BUN/Creatinine Ratio 23 H Glucose [address] Glu mg/dL 131 Hemoglobin A1c 6.2 H Calculated Osmolality 282 Calcium 9.5 Corrected Calcium 9.7 Phosphorus 3.8 Magnesium 1.7 Total Bilirubin 0.6 AST 10 ALT 13 Alkaline Phosphatase 80 Total Protein 6.1 Albumin 3.8 Globulin 2.3 Albumin/Globulin Ratio 1.7 Triglycerides 190 H Cholesterol 119 L LDL Cholesterol, Calc 38 HDL Cholesterol 43 Cholesterol/HDL Ratio 2.8 L TSH 1.73 Assessment & Plan Assessment and plan (1) Expressive aphasia syndrome: Status: Acute Assessment and plan: With unsteady gait: Several episodes in the past. None since admission Afocal on exam Reassurance given to the patient and family that MRI brain is negative for acute infarction/demyelination Continue with vascular risk factors control for preventing recurrence including diabetes and hypertension and hypertriglyceridemia. Continue with aspirin 81 mg and statin low-dose. Stable for discharge home from neurology standpoint. Follow-up in 2 weeks (2) Type 2 diabetes mellitus: Status: Chronic Assessment and plan: Under control as per the last A1c of 6.2, resume her outpatient meds upon discharge (3) Hyperlipidemia: Status: Chronic Assessment and plan: With a statin low-dose as the triglycerides are high Normal LDL and HDL
--- NOTE | 2024-08-09 23:26 | ECHO_ITS ---
Transthoracic Echo Report Ht (in): 63 Wt (lb): 170 Exam Location: [facility] Status: Inpatient Covering Machine Tender: MARTINEZ Primitivo^^^^ Indications: Procedure Performed: BP: 124 / 77 HR: 73 Technical Quality: Technically difficult study MEASUREMENTS (Male / Female) Normal Values 2D ECHO LV Diastolic Diameter PLAX 4.1 cm 4.2 - 5.9 / 3.9 - 5.3 cm LV Systolic Diameter PLAX 2.8 cm IVS Diastolic Thickness 0.8 cm 0.6 - 1.0 / 0.6 - 0.9 cm LVPW Diastolic Thickness 0.8 cm 0.6 - 1.0 / 0.6 - 0.9 cm LV Relative Wall Thickness 0.4 LVOT Diameter 1.8 cm Aortic Root Diameter 3.5 cm LA Systolic Diameter LX 2.8 cm 3.0 - 4.0 / 2.7 - 3.8 cm LV Ejection Fraction MOD 2C 62.9 % LV Cardiac Index MOD 2C 1465.8 cm?/min?m? LV Ejection Fraction 2C AL 64.1 % LV Cardiac Index 2C AL 1508.4 cm?/min?m? LA Volume Index 23.5 cm?/m? 16 - 28 cm?/m? Ascending Aorta Diameter 3.0 cm DOPPLER AV Peak Velocity 101.1 cm/s AV Peak Gradient 4.1 mmHg AV Mean Gradient 3.0 mmHg AV Velocity Time Integral 18.7 cm AI Peak Velocity 132.0 cm/s AI Peak Gradient 7.0 mmHg AI Pressure Half Time 701.0 ms LVOT Peak Velocity 76.1 cm/s LVOT Peak Gradient 2.3 mmHg LVOT Velocity Time Integral 20.0 cm LVOT Cardiac Index 1978.7 cm?/min?m? AV Area Cont Eq vti 2.7 cm? AV Area Cont Eq pk 1.9 cm? MV Area PHT 2.7 cm? Mitral E Point Velocity 53.9 cm/s Mitral A Point Velocity 69.4 cm/s Mitral E to A Ratio 0.8 LV E' Lateral Velocity 4.6 cm/s Mitral E to LV E' Lateral Ratio 11.8 LV E' Septal Velocity 6.2 cm/s Mitral E to LV E' Septal Ratio 8.7 TR Peak Velocity 167.0 cm/s TR Peak Gradient 11.2 mmHg PV Peak Velocity 70.3 cm/s PV Peak Gradient 2.0 mmHg RVOT Peak Velocity 56.9 cm/s FINDINGS Left Ventricle Normal left ventricular size, wall thickness, systolic function with no obvious regional wall motion abnormalities. There is grade I diastolic dysfunction of the left ventricle (impaired relaxation pattern). The left ventricular ejection fraction is normal, estimated at 55-60%. Right Ventricle The right ventricle is normal in size and systolic function. The estimated right ventricular systolic pressure, 13 mmHg. Left Atrium The left atrium is normal by two-dimensional, color flow and Doppler imaging with no structural abnormalities, no thrombus formation present. Right Atrium The right atrium is normal by two-dimensional imaging, color flow and Doppler imaging with no structural abnormalities, no thrombus formation present. Atrial Septum The interatrial septum is normal to color flow Doppler and agitated saline imaging. Aorta The aorta is normal by two-dimensional, color flow and Doppler interrogation. Mitral Valve Trace to mild mitral regurgitation. Aortic Valve Trace to mild aortic valve regurgitation. Tricuspid Valve There is mild tricuspid valve regurgitation. Pulmonic Valve Trivial pulmonic valve regurgitation. Vessels The pulmonary artery appears normal. The inferior vena cava pulmonary and hepatic veins appear normal. Pericardium The pericardium is normal by two-dimensional imaging. There is no significant pericardial effusion. CONCLUSIONS indication: PFO r/o with Bubble LV appears normal with EF 55-60%. Diastolic Dysfunction I present. RV appears normal with RVSP 14 mmHg IAS is normal to color flow Doppler and agitated saline imaging. Negative bubble study, No PFO detected Trace mitral and trace tricuspid regurgitation Gaby Samson (Electronically Signed) Final Date: 09 August 2024 13:21
[2024-08-10] VITALS: BP 115/78; PULSE 100; RESP 18; TEMP 36.2; O2SAT 95
[2024-08-10 04:00] VITALS: BP 124/86; PULSE 89; RESP 17; TEMP 36.4; O2SAT 96
--- NOTE | 2024-08-10 04:41 | PC.NURSE ---
[employer] downtime occurred on <08/10/24> from <0200> to <0320>
[2024-08-10 05:08] VITALS: BMI 27.7
[2024-08-10 05:28] LABS: Basophils # (Auto) 0.1 Thou/mm3 (0.0-0.2); Basophils % (Auto) 1 % (0-2.5); Eosinophils # (Auto) 0.3 Thou/mm3 (0.0-0.5); Eosinophils % (Auto) 4 % (0-10); Hematocrit 38.2 % (36.0-46.0); Hemoglobin 13.2 g/dL (12.0-16.0); Immature Granulocytes % (Auto) 0 % (0-0); Immature Granulocytes Auto 0.01 Thou/mm3 (0.00-0.00); Lymphocytes # (Auto) 2.2 Thou/mm3 (1.0-4.8); Lymphocytes % (Auto) 34 % (10-50); Mean Corpuscular HGB Conc 34.6 g/dl (31.0-37.0); Mean Corpuscular Hemoglobin 29.9 pg (25.0-35.0); Mean Corpuscular Volume 87 fL (80-100); Monocytes # (Auto) 0.6 Thou/mm3 (0.0-0.8); Monocytes % (Auto) 9 % (0-12); Neutrophils # (Auto) 3.3 Thou/mm3 (1.8-7.7); Neutrophils % (Auto) 52 % (37-80); Nucleated Red Blood Cell % 0 /100 WBC (0); Platelet Count 278 Thou/mm3 (140-440); RDW Standard Deviation 39.8 fL (36.4-46.3); Red Blood Count 4.41 Miln/mm3 (4.00-5.20); White Blood Count 6.3 Thou/mm3 (3.6-11.0)
[2024-08-10 06:31] LABS: Alanine Aminotransferase 15 U/L (10-49); Albumin/Globulin Ratio 1.6 (1.2-2.2); Alkaline Phosphatase 99 U/L (46-116); Anion Gap 10 (7-16); Aspartate Amino Transferase < 10 U/L (0-34); BUN/Creatinine Ratio 16 Ratio (12-20); Bilirubin,Total 0.6 mg/dL (0.3-1.2); Blood Urea Nitrogen 11 mg/dL (9-23); Calcium 9.8 mg/dL (8.3-10.6); Calcium (Corrected) 9.8 mg/dL (8.5-10.1); Carbon Dioxide 24.5 mMol/L (20.0-31.0); Chloride 110 mMol/L (98-107); Creatinine (Component) 0.7 mg/dL (0.6-1.3); Estimated Creatinine Clearance 81.7 mL/min (>60); Globulin 2.5 gm/dL (2.3-3.5); Glucose 163 mg/dL (74-106); Magnesium 1.7 mg/dL (1.6-2.6); Osmolality,Calculated 290 (275-295); Potassium 3.4 mMol/L (3.4-5.1); Sodium 144 mMol/L (136-145); Total Protein 6.5 gm/dL (5.7-8.2); eGFR > 60 See Note
[2024-08-10] MEDS: HYDROcodone/APAP 5/325 TABLET 1 TAB PO (07:35)
[2024-08-10] MEDS: INSULIN LISPRO (AdmeLOG) 1 UNIT/0.01 ML UNIT SC ×2 (07:46→11:16)
[2024-08-10 08:00] VITALS: BP 138/97; PULSE 93; PULSE 97; RESP 15; TEMP 37.1; O2SAT 98
[2024-08-10] MEDS: PANTOPRAZOLE INJ 40 MG VIAL IVP (08:37)
[2024-08-10] MEDS: ENOXAPARIN SOD INJ 40 MG/0.4 ML SYRINGE SC (08:37)
[2024-08-10] MEDS: ASPIRIN EC 81 MG TABEC PO (08:37)
[2024-08-10] MEDS: POTASSIUM CHLORIDE 20 mEq TABCR 40 MEQ PO (09:03)
[2024-08-10] MEDS: Magnesium Sulfate 1 gm Ivpb 1 GM/100 ML BAG IV (10:15)
--- NOTE | 2024-08-10 10:17 | ESDS_ITS ---
<Statement entered by Skye Vu DO - 08/11/24 09:24> I, Skye Vu DO, attest that I was physically present for the rodriguez portions of the service and evaluated the patient with the resident and I reviewed and discussed the case with the resident and agree with the resident's findings and plans of care as documented above <Statement entered by Jayda Jorgensen MD - 08/10/24 18:01> I discussed with and supervised the senior international tax manager physician who took care of this patient. I personally saw and examined the patient and discussed the assessment and plan with the entire medicine team, including my attending , I agree with most of the assessment and plan as documented below Jayda Jorgensen M.D. PGY-2 Disclaimer: Despite multiple revisions, due to the dictation software being used, the document bellow may not be free of grammatical errors including phonetic/typographic errors. However, this does not deter from our commitment to providing health care in the patient's best interest in mind. Planned Discharge Date 08/10/24 DS: Providers Provider Date of admission: 08/08/24 23:24 Primary care physician: Physician No Primary/Family Admitting Provider: Jac Braswell MD Attending Provider on Admission: Skye Vu DO Consults: 08/08/24 20:27 Consult to Neurology / Tele-Neurology Stat Comment: Consulting Provider: Jose Luis Jorgensen 08/08/24 23:35 Referral Physical Therapy Routine Comment: Physician Instructions: Referral Speech Therapy Routine Comment: Attending Provider on DC: Skye Vu DO Discharging Provider: Bubba Newsome MD Anticipated date of discharge: 08/10/24 DS: Diagnosis Problem List Completed Was Problem List Reviewed/Reconciled?: Yes Hospital Course Hospital Course Hospital course: 58 y/o female with past medical history of hypertension, hyperlipidemia, [id number] type 2 diabetes mellitus comes in for an evaluation of expressive aphasia, slurred speech, left lower extremity weakness, left-sided eye droop, and trouble finding words with speech, onset 2 weeks ago. Patient was admitted for CVA work up. During Hospital stay patient was evaluated with Head CT, Head and Neck CTA, all found to be negative. MRI brain was done and was found with no acute stroke. Patient was evaluated by in house Neurology, Dr. Jorgensen and recommended to keep the patient on aspirin and lipitor at the time of discharge. Echocardiogram was done and was negative for PFO. Physical therapy and speech therapy evaluated the patient and recommended to go home. Presenting symptoms could likely be related to hypoglycemia and hypotensive episodes at home as family describes the symptoms and blood pressure and sugars have remained stable here during hospitalization with minimal dosing. Diabetes was managed with sliding scale insulin and hypoglycemia protocol. At this time patient is medically stable for discharge. Follow up with primary care physician Dr. Jocelin Newsome on Thursday08/12/2024 @ 10am. Follow-up with neurologist Dr. Jorgensen within 2 weeks of discharge You have been prescribed aspirin 81 mg please take every day as well as atorvastatin 10 mg in the afternoon every day. You have been prescribed lisinopril 5 mg daily please take medication as prescribed. Please take hydroxizine as needed once a day. Ambien has been discontinued as well as glipizide has been discontinued. Should any symptoms recur or worsen patient instructed to return to the ED. Problem List: #CVA-ruled out #Expressive aphasia syndrome #Slurred speech #Diabetes mellitus type II, non-insulin dependent #History of hypertension #History of hyperlipidemia Case discussed with my senior Dr. Jorgensen PGY-[address] Horace Newsome MD PGY-1 Status at Discharge Functional status at discharge: independent ambulation Overall status at discharge: patient is back to baseline Time Spent with Patient Time attestation: Total time spent providing and/or coordinating discharge services: Time spent: Greater than 30 minutes Exam Vital Signs Temp Pulse Resp BP Pulse Ox O2 Del Method 98.7 F 93 15 138/97 H 98 Room Air 08/10/24 08:00 08/10/24 08:00 08/10/24 08:00 08/10/24 08:00 08/10/24 08:00 08/10/24 08:00 Narrative Exam Physical Exam GENERAL: NAD, AAOx3 HEENT: Moist mucosa. Eyes open, symmetrical, & clear CARDIO: Heart RRR, no obvious murmurs PULM: No noted coughing/dyspnea CTA B/L, no R/W/R GI: Abdomen soft, nondistended, no pain on palpation. BSx4 SKIN/MSK/EXT: No wounds/rashes/edema/amputations, no pain on palpation. Pedal pulses present B/L NEURO: AAOx3, no focal neuro deficits, able to move all 4 extremities Discharge Plan Plan Patient Disposition: HOME (Self Care) Patient condition on transfer: Stable Care Plan Goals: Follow up with primary care physician Dr. Jocelin Newsome on Thursday08/12/2024 @ 10am Follow-up with neurologist Dr. Jorgensen within 2 weeks of discharge You have been prescribed aspirin 81 mg please take every day as well as atorvastatin 10 mg in the afternoon every day Please take hydroxizine as needed once a day Ambien has been discontinued as well as glipizide has been discontinued Should any symptoms recur or worsen patient instructed to return to the ED. Prescriptions/Referrals Prescriptions/Med Rec: New atorvastatin 10 mg tablet 10 mg PO QPM Qty: 30 0RF aspirin [Adult Aspirin Regimen] 81 mg tablet,delayed release (DR/EC) 81 mg PO QDAY Qty: 30 0RF lisinopril 5 mg tablet 5 mg PO QDAY Qty: 30 0RF Continued METFORMIN HCL (METFORMIN HCL ER) 500 MG TAB.ER.24 1,000 mg PO BID Qty: 0 hydrocodone-acetaminophen 7.5-325 mg Tablet 1 tab PO Q8H PRN (Reason: Pain) hydroxyzine HCl 25 mg tablet 25 mg PO Q6H PRN (Reason: anxiety) ferrous sulfate [Feosol] 325 mg (65 mg iron) tablet 325 mg PO TID omeprazole 20 mg capsule,delayed release(DR/EC) 20 mg PO QDAY Discontinued glipizide 5 mg Tablet 5 mg PO BID zolpidem [Ambien] 5 mg tablet 5 mg PO HS PRN (Reason: insomnia) Referrals: No Primary/Family,Physician [Primary Care Provider] - Patient/Caregiver Discharge Instructions Print Language: Citizen Of [place] Stand Alone Forms: Mery Award Info., Patient Portal Info Letter Discharge Order Discharge Orders: Discharge (Routine); Ordered 08/10/24 Ordered By: Bubba Newsome Quality Discharge Quality Measures VTE prophylaxis
[2024-08-10 12:00] VITALS: BP 128/91; PULSE 103; PULSE 93; RESP 24; TEMP 36.2; O2SAT 98
--- NOTE | 2024-08-10 14:45 | PC.SS ---
Follow up note: Patient to be discharged home today. No further d/c needs.
== END 2024-08-10 13:18 | disposition home or self-care (01) | DRG 58 ==
LOC: SERX 20:37 → SERHOLD 23:57 → S2NX 08-09 00:53
PROVIDERS: Registered Nurse General Practice; Admitting Provider Student in an Organized Health Care Education/Training Program; Emergency Provider Emergency Medicine; Visit Provider Internal Medicine
DX: R47.01 Aphasia (principal); E78.5 Hyperlipidemia, unspecified; I10 Essential (primary) hypertension; R26.81 Unsteadiness on feet; E11.9 Type 2 diabetes mellitus without complications; E78.1 Pure hyperglyceridemia; R53.1 Weakness; Z66 Do not resuscitate; Z79.84 Long term (current) use of oral hypoglycemic drugs; Z79.899 Other long term (current) drug therapy; Z79.891 Long term (current) use of opiate analgesic
CPT/HCPCS: 36415; 70450; 70496; 70498; 70544; 80053; 80061; 80307; 81001; 83036; 83615; 83735; 83880; 84100; 84443; 84484; 85025; 85610; 85730; 92523; 93005; 93306; 97162; 99285; A4649; J1650; J1815; J2470; J3475; J3480; Q9967; A9270

== ENCOUNTER → 2025-04-06 | Outpatient (CLI) | payer MEDICAID, SELFPAY ==
--- NOTE | 2025-04-06 08:45 | XR_ITS ---
Examination: Abdomen sonogram, complete Date and time of exam: April 06, 2025, 0822 hours INDICATIONS: Vomiting beginning 1 month ago. Technique: Multiple real-time grayscale transabdominal sonographic images of the abdomen have been obtained. Findings: Absent gallbladder Normal common bile duct 0.2 cm Pancreatic head 2.8 cm Aorta not enlarged Liver 12.4 cm fatty infiltration Normal hepatopetal portal venous flow Patent IVC Right kidney 9.6 cm renal cortex 1.6 cm Upper pole 7 mm cyst Left kidney 10.3 cm renal cortex 1.7 cm Multiple left renal calculi, the largest 4 mm Moderate renal scar formation Spleen 7.1 cm IMPRESSION: Normal common bile duct Fatty infiltration throughout the liver Small kidneys with bilateral renal cortical thinning Multiple left renal calculi, the largest 4 mm, no hydronephrosis
== END | disposition home or self-care (01) ==
PROVIDERS: PCP Nurse Practitioner Family; Referring Provider Nurse Practitioner Family; Visit Provider Nurse Practitioner Family
DX: K76.0 Fatty (change of) liver, not elsewhere classified (principal); N27.1 Small kidney, bilateral; N20.0 Calculus of kidney
CPT/HCPCS: 76700

== ENCOUNTER 2025-04-08 15:08 | Emergency (ER) | payer MEDICAID, SELFPAY ==
[2025-04-08 15:08] VITALS: BMI 27.6
[2025-04-08 15:16] VITALS: BP 150/89; PULSE 100; RESP 18; TEMP 36.9; O2SAT 98
--- NOTE | 2025-04-08 15:32 | EDRME_ITS ---
Rapid Medical Screening Exam [facility] Arrival date/time: 04/08/25 15:08 This is a 59-year-old female that is brought into the emergency room by daughter with complaints of vomiting. Per daughter the vomiting has been going on for approximately a year. It is on and off. Patient takes promethazine at home for this. Today despite taking medication she was not able to stop vomiting. Patient also has complaints of a headache. Patient does have some abdominal pain patient had a ultrasound done 2 days ago that showed Multiple left renal calculi. Hyperlipidemia and diabetes. I have greeted and performed a focused initial assessment of this patient. Initial appropriate labs ordered at this time. A comprehensive ED assessment and evaluation of the patient and analysis of all test and completion of medical decision making process will be conducted by additional ED provider. Patient currently being worked up by primary provider. Patient has a history of. Chief Complaint: Nausea/Vomiting/Diarrhea Time Seen by Provider: 04/08/25 15:15 Vital signs: Vital Signs Temperature 98.5 F 04/08/25 15:16 Pulse Rate 100 04/08/25 15:16 Respiratory Rate 18 04/08/25 15:16 Blood Pressure 150/89 H 04/08/25 15:16 Pulse Oximetry (%) 98 04/08/25 15:16 Oxygen Delivery Method Room Air 04/08/25 15:16 Exam: Alert and oriented, diffuse abdominal pain Clinical Impression: vomiting and abdominal pain
[2025-04-08] MEDS: ONDANSETRON INJ 2 MG/ML INJ 2 ML 4 MG IM (15:38)
[2025-04-08 15:45] LABS: Collection Type, Urine Voided; Squamous Epithelial Cell,Urine 0 /hpf (0-5)
[2025-04-08 16:13] LABS: Amorphous Crystals,Urine Present (Absent); Bacteria,Urine 3+; Bilirubin,Urine Negative (Negative); Blood,Urine Negative (Negative); Clarity,Urine Turbid (Clear/Hazy); Color,Urine Yellow (Lt Yel-Yel); Glucose, Urine Negative (Negative); Ketones,Urine Negative (Negative); Leukocyte Esterase,Urine Positive (Negative); Nitrite,Urine Positive (Negative); PH,Urine 7.5 (5.0-7.0); Protein,Urine 1+ (Neg - Trace); RBC,Urine 6 /hpf (0-3); Specific Gravity,Urine 1.019 (1.001-1.035); Urobilinogen,Urine Negative mg/dL (0.0-1.0); WBC,Urine 63 /hpf (0-5)
[2025-04-08 16:14] LABS: Basophils # (Auto) 0.1 Thou/mm3 (0.0-0.2); Basophils % (Auto) 1 % (0-2.5); Eosinophils # (Auto) 0.4 Thou/mm3 (0.0-0.5); Eosinophils % (Auto) 4 % (0-10); Hematocrit 42.0 % (36.0-46.0); Hemoglobin 13.8 g/dL (12.0-16.0); Immature Granulocytes Auto 0.02 Thou/mm3 (0.00-0.00); Lymphocytes # (Auto) 2.5 Thou/mm3 (1.0-4.8); Lymphocytes % (Auto) 25 % (10-50); Mean Corpuscular HGB Conc 32.9 g/dl (31.0-37.0); Mean Corpuscular Hemoglobin 30.1 pg (25.0-35.0); Mean Corpuscular Volume 92 fL (80-100); Monocytes # (Auto) 0.5 Thou/mm3 (0.0-0.8); Monocytes % (Auto) 5 % (0-12); Neutrophils # (Auto) 6.8 Thou/mm3 (1.8-7.7); Neutrophils % (Auto) 67 % (37-80); Nucleated Red Blood Cell # 0.00 Thou/mm3 (0.00-0.00); Nucleated Red Blood Cell % 0 /100 WBC (0); Platelet Count 423 Thou/mm3 (140-440); RDW Standard Deviation 42.2 fL (36.4-46.3); Red Blood Count 4.58 Miln/mm3 (4.00-5.20); White Blood Count 10.2 Thou/mm3 (3.6-11.0)
[2025-04-08 16:14] LABS: Culture Indicated,Urine Yes
[2025-04-08 16:23] LABS: Alanine Aminotransferase 23 U/L (10-49); Albumin, Serum 5.0 gm/dL (3.4-4.8); Albumin/Globulin Ratio 2.2 (1.2-2.2); Alkaline Phosphatase 121 U/L (46-116); Anion Gap 14 (7-16); Aspartate Amino Transferase 18 U/L (0-34); BUN/Creatinine Ratio 12 Ratio (12-20); Bilirubin,Total 0.6 mg/dL (0.3-1.2); Blood Urea Nitrogen 11 mg/dL (9-23); Calcium 10.6 mg/dL (8.3-10.6); Calcium (Corrected) 10.6 mg/dL (8.5-10.1); Carbon Dioxide 23.3 mMol/L (20.0-31.0); Chloride 105 mMol/L (98-107); Creatinine (Component) 0.9 mg/dL (0.6-1.3); Estimated Creatinine Clearance 60.3 mL/min (>60); Globulin 2.3 gm/dL (2.3-3.5); Glucose 151 mg/dL (74-106); Lipase 29 U/L (12-53); Osmolality,Calculated 285 (275-295); Potassium 3.8 mMol/L (3.4-5.1); Sodium 142 mMol/L (136-145); Total Protein 7.3 gm/dL (5.7-8.2); eGFR > 60 See Note
--- NOTE | 2025-04-08 16:32 | EDNOTE_ITS ---
<Statement entered by Bree Alcantar MD - 05/08/25 06:19> As co-signing physician, I was present and available for consult prn. I concur with the plan and care as documented by the midlevel provider. ED Headache [facility]ME/[facility] General Chief Complaint: Nausea/Vomiting/Diarrhea Stated Complaint: VOMITING SINCE THIS AM WITH SEVERE HEADACHE Time Seen by Provider: 04/08/25 15:15 Arrival date/time: 04/08/25 15:08 This is a 59-year-old female that is brought into the emergency room by daughter with complaints of vomiting. Per daughter the vomiting has been going on for approximately a year. It is on and off. Patient takes promethazine at home for this. Today despite taking medication she was not able to stop vomiting. Patient also has complaints of a headache. Patient does have some abdominal pain patient had a ultrasound done 2 days ago that showed Multiple left renal calculi. Hyperlipidemia and diabetes. RME / HPI RME / HPI Narrative: 04/08/25 15:08 This is a 59-year-old female that is brought into the emergency room by daughter with complaints of vomiting. Per daughter the vomiting has been going on for approximately a year. It is on and off. Patient takes promethazine at home for this. Today despite taking medication she was not able to stop vomiting. Patient also has complaints of a headache. Patient does have some abdominal pain patient had a ultrasound done 2 days ago that showed Multiple left renal calculi. Hyperlipidemia and diabetes. I have greeted and performed a focused initial assessment of this patient. Initial appropriate labs ordered at this time. A comprehensive ED assessment and evaluation of the patient and analysis of all test and completion of medical decision making process will be conducted by additional ED provider. Patient currently being worked up by primary provider. Patient has a history of. Exam: Alert and oriented, diffuse abdominal pain Impression: vomiting and abdominal pain Related Data Home Medications ?Medication ?Instructions ?Recorded ?Confirmed METFORMIN HCL (METFORMIN HCL ER) 1,000 mg PO BID Diabe tor ##0 08/06/13 08/09/24 hydrocodone 7.5 mg-acetaminophen 1 tab PO Q8H PRN Pain 10/10/17 08/09/24 325 mg tablet ferrous sulfate 325 mg (65 mg 325 mg PO TID 08/09/24 0 08/09/24 iron) tablet (Feosol) hydroxyzine HCl 25 mg tablet 25 mg PO Q6H PRN anxiety 08/09/24 08/09/24 omeprazole 20 mg capsule,delayed 20 mg PO QDAY 5 08/09/24 release Previous Rx's ?Medication ?Instructions ?Recorded aspirin 81 mg tablet,delayed 81 mg PO QDAY #30 tabs release (Adult Aspirin Regimen) atorvastatin 10 mg tablet 10 mg PO QPM #30 tabs lisinopril 5 mg tablet 5 mg PO QDAY #30 tabs Allergies Allergy/AdvReac Type Severity Reaction Status Date / Time tramadol Allergy Mild Itching Verified 08/08/24 16:50 Review of Systems Review of Systems Systems Reviewed: All systems reviewed, normal except as documented Past Medical History Past Medical History CARDIAC: Negative Cardiac Disorders or Congestive Heart Failure RESPIRATORY: Negative Chronic Obstructive Pulmonary Disease (COPD) or Asthma GASTROINTESTINAL: Positive Gastroesophageal Reflux Disease GENITOURINARY: Negative Renal Disease ENDOCRINE: Positive Diabetes Mellitus Type 2; Negative Diabetes Mellitus Type 1 HEMATOLOGIC: Negative Sickle Cell Disease Social History SMOKING STATUS: Never smoker SUBSTANCE USE: does not use ED Exam Narrative Physical exam: VITAL SIGNS: Reviewed. GENERAL APPEARANCE: Alert and interactive, follows commands, no acute distress HEAD AND FACE: Non-traumatic. ENT: PERRL, conjuctiva pink and clear, eyelid no trauma, Mucous membrane moist. NECK: Supple, nontender, no nuchal rigidity. CHEST: No tenderness, no crepitus, no paradoxical movement, no retractions. LUNGS: breathing even and unlabored HEART: Regular rate, cap refill less than 2 seconds ABDOMEN: Soft, nondistended, no guarding, nontender NEUROLOGICAL: Gross motor function intact sensory function intact, Appropriate for age. MUSCULOSKELETAL: low back nontender, full range of motion. EXTREMITIES: No redness no swelling no skin breakdown on bilateral foot and leg. Distal neurovascular status intact bilateral foot SKIN: Color pink, dry, no rash, no lacerations, no abrasions, no contusions. Course Quality Measures none Orders Category Date Time Status CBC Stat Lab 04/08/25 15:48 Completed Comprehensive Metabolic Panel Stat Lab 04/08/25 15:48 Completed Lipase Stat Lab 04/08/25 15:48 Completed Urinalysis, C/S if Indicated Stat Lab 04/08/25 15:36 Completed Urine Culture Stat Lab 04/08/25 15:36 Completed Ketorolac Inj [Toradol Inj] Med 04/08/25 16:34 Discontinued 60 mg IM X1 ONE Ondansetron Inj [Zofran Inj] Med 04/08/25 15:31 Discontinued 4 mg IM X1 ONE Ondansetron Inj [Zofran Inj] Med 04/08/25 15:30 Discontinued 4 mg IVP X1 ONE Ondansetron Odt [Zofran Odt] Med 04/08/25 16:34 Discontinued 4 mg PO X1 ONE cefTRIAXone [Rocephin] 1,000 mg Med 04/08/25 16:31 Discontinued Lidocaine 1% 20 ml [Xylocaine 1% 20 ML] 2.1 ml IM X1 Vital Signs Vital signs: Vital Signs Temperature 98.5 F 04/08/25 15:16 Pulse Rate 100 04/08/25 15:16 Respiratory Rate 18 04/08/25 15:16 Blood Pressure 150/89 H 04/08/25 15:16 Pulse Oximetry (%) 98 04/08/25 15:16 Oxygen Delivery Method Room Air 04/08/25 15:16 Headache MDM Narrative MDM Narrative:: Previous ultrasound: Findings: Absent gallbladder Normal common bile duct 0.2 cm Pancreatic head 2.8 cm Aorta not enlarged Liver 12.4 cm fatty infiltration Normal hepatopetal portal venous flow Patent IVC Right kidney 9.6 cm renal cortex 1.6 cm Upper pole 7 mm cyst Left kidney 10.3 cm renal cortex 1.7 cm Multiple left renal calculi, the largest 4 mm Moderate renal scar formation Spleen 7.1 cm IMPRESSION: Normal common bile duct Fatty infiltration throughout the liver Small kidneys with bilateral renal cortical thinning Multiple left renal calculi, the largest 4 mm, no hydronephrosis Labs reviewed. patient is urine positive for UTI. Previous notes show that patient has kidney stones Will patient have patient follow-up with primary provider in 1 to 2 days. Come back to the emergency room symptoms change or worsen. Will give patient a dose of Rocephin for UTI and Toradol for headache. Dragon dictation: Although this document has been carefully reviewed, there may still be some phonetic and other typographical errors. These errors are purely grammatical due to imperfections in the software program and should not be construed in any way to compromise the substance of the patient's medical care during this visit. Patient data External records reviewed:: [facility] previous records Clinical information provided by:: patient Social determinants that could affect healthcare access:: none Patient has the following chronic illnesses:: See note How is presenting disease/condition affected by chronic disease/condition?: uneffected by Evaluation data The following diagnostics were reviewed and interpreted by me:: lab results and radiology exam(s) Lab and/or radiology exams considered but not ordered:: None Interpretation Summary: See note Medications / Prescriptions Medications or Prescriptions considered but not ordered:: None Medication administrations:: Medication Administration History Discontinued Medications Ceftriaxone Sodium 1,000 mg/ (Lidocaine HCl 2.1 ml) 0 mg IM X1 ONE Stop: 04/08/25 16:32 Last Admin: 04/08/25 16:56 Dose: 1,000 mg Documented By: DUARTE Ketorolac Tromethamine (Ketorolac Inj 60 Mg/2 Ml Vial) 60 mg IM X1 ONE Stop: 04/08/25 16:35 Last Admin: 04/08/25 16:55 Dose: 60 mg Documented By: DUARTE Ondansetron HCl (Ondansetron Inj 2 Mg/Ml Inj 2 Ml) 4 mg IVP X1 ONE; Protocol Stop: 04/08/25 15:31 Last Admin: 04/08/25 15:40 Dose: Not Given Documented By: KENN Non-Admin Reason: Cancelled by Provider Ondansetron HCl (Ondansetron Inj 2 Mg/Ml Inj 2 Ml) 4 mg IM X1 ONE; Protocol Stop: 04/08/25 15:32 Last Admin: 04/08/25 15:38 Dose: 4 mg Documented By: KENN Ondansetron HCl (Ondansetron Odt 4 Mg Tabrap) 4 mg PO X1 ONE; Protocol Stop: 04/08/25 16:35 Last Admin: 04/08/25 16:54 Dose: 4 mg Documented By: Rei See [facility] Consultations Consultation(s) initiated? (list below): No Diagnosis Differential diagnosis headache: migraine, tension headache and other (UTI pyelonephritis kidney stones) Most likely diagnosis given after review of the tests above:: UTI kidney stones Admission Indicated Admission indicated?: not indicated Admission Request Was there a request for admission?: No Disposition Plan Disposition Plan: Discharge Discharge Attestation Discharge Attestation: The patient and all family members were given an opportunity to ask questions and understood the discharge instructions. Discharge instructions specifically effects, indications for sooner follow up or return to the emergency department, and the expected course of current diagnosis. Patient condition: Stable Discharge Plan Plan Patient Disposition: HOME (Self Care) Patient condition on transfer: Stable Prescriptions/Referrals Prescriptions/Med Rec: No Action METFORMIN HCL (METFORMIN HCL ER) 500 MG TAB.ER.24 1,000 mg PO BID Qty: 0 hydrocodone-acetaminophen 7.5-325 mg Tablet 1 tab PO Q8H PRN (Reason: Pain) hydroxyzine HCl 25 mg tablet 25 mg PO Q6H PRN (Reason: anxiety) ferrous sulfate [Feosol] 325 mg (65 mg iron) tablet 325 mg PO TID omeprazole 20 mg capsule,delayed release(DR/EC) 20 mg PO QDAY atorvastatin 10 mg tablet 10 mg PO QPM Qty: 30 0RF aspirin [Adult Aspirin Regimen] 81 mg tablet,delayed release (DR/EC) 81 mg PO QDAY Qty: 30 0RF lisinopril 5 mg tablet 5 mg PO QDAY Qty: 30 0RF Referrals: Jocelin Newsome [Primary Care Provider] - In 1 week Problem List Clinical Impression: Kidney calculi, UTI (urinary tract infection) Patient/Caregiver Discharge Instructions Discharge Activity: activity as tolerated Education Materials: ED Hematuria, ED CYSTITIS Female Adult Additional Instructions: Deirdre un damian con oliver medico de cabecera en las proximas 24-48 horas. Regrese a la elizabeth de emergencias si hay evidencia de que los signos o sintomas empeoran. Print Language: Bengali Stand Alone Forms: Mery Award Info., Patient Portal Info Letter PA/HARPSICHORD MAKER Supervising Physician PA/HARPSICHORD MAKER Supervising Physician: isadora
[2025-04-08] MEDS: ONDANSETRON ODT 4 MG TABRAP PO (16:54)
[2025-04-08] MEDS: KETOROLAC INJ 60 MG/2 ML VIAL IM (16:55)
[2025-04-08] MEDS: cefTRIAXone 1,000 MG, LIDOCAINE 1% 20 ML 2.1 ML IM (16:56)
== END 2025-04-08 17:01 | disposition home or self-care (01) ==
PROVIDERS: Nurse Practitioner Family; Emergency Provider Emergency Medicine; PCP Physician Assistant
DX: N39.0 Urinary tract infection, site not specified (principal); N20.0 Calculus of kidney; E11.9 Type 2 diabetes mellitus without complications; E78.5 Hyperlipidemia, unspecified
CPT/HCPCS: 36415; 80053; 81001; 83690; 85025; 87077; 87086; 87186; 96372; 99282; J0696; J1885; J2405; J3490; Q0162